=== PATIENT | male | born 1990 ===

== ENCOUNTER 2016-12-07 17:32 | Emergency (ER) | payer MEDICAID ==
[2016-12-07 17:33] VITALS: BMI 27.7
[2016-12-07 18:27] VITALS: TEMP 97.8; O2SAT 100
--- NOTE | 2016-12-07 18:34 | ED PDOC ---
Arrival/HPI - General Chief Complaint: Rib Injury Time Seen by Provider: 12/07/16 18:31 Historian: Patient - History of Present Illness Narrative History of Present Illness (Text): 12/07/16 18:32 26 y/o male, no pmh, nkda, c/o lt. lateral rib pain x 2 days with no fall or trauma. 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 Aching pain, aggravated by movement, no recent URI symptoms, no chest pain or shortness of breath, no hematuria, no urinary symptoms, no flank pain, no nausea or vomiting, no dizziness, no palpitation, no other medical or psychological complaints. Past Medical History - Provider Review Nursing Documentation Reviewed: Yes - Infectious Disease Hx of Infectious Diseases: None - Past Medical History Past Medical History: No Previous - Psychiatric Hx Depression: No Hx Emotional Abuse: No Hx Physical Abuse: No Hx Substance Use: Yes - Past Surgical History Past Surgical History: No Previous - Anesthesia Hx Anesthesia: No Hx Anesthesia Reactions: No Hx Malignant Hyperthermia: No - Suicidal Assessment Feels Threatened In Home Enviroment: No Family/Social History - Physician Review Nursing Documentation Reviewed: Yes Family/Social History: Unknown Family HX Smoking Status: Never Smoked Hx Alcohol Use: Yes Frequency of alcohol use: Socially Hx Substance Use: Yes Substance used: MJ Allergies/Home Meds Allergies/Adverse Reactions: Allergies No Known Allergies Allergy (Verified 02/07/14 07:32) Review of Systems - Review of Systems Constitutional: absent: Fatigue, Fevers Eyes: absent: Vision Changes ENT: absent: Hearing Changes Respiratory: absent: Cough Cardiovascular: absent: Chest Pain, Palpitations Gastrointestinal: absent: Abdominal Pain, Diarrhea, Nausea, Vomiting Musculoskeletal: Arthralgias, Myalgias. absent: Back Pain, Neck Pain, Joint Swelling Skin: absent: Rash, Pruritis, Skin Lesions, Laceration, Abscess, Ulcer, Cellulitis Neurological: absent: Headache, Dizziness, Focal Weakness, Gait Changes, Speech Changes, Facial Droop, Disequilibrium, Seizure Physical Exam Vital Signs Reviewed: Yes Vital Signs Temp Pulse Resp BP Pulse Ox 12/07/16 20:11 62 16 122/70 100 12/07/16 18:19 97.8 F 60 17 120/67 100 Temperature: Afebrile Blood Pressure: Normal Pulse: Regular Respiratory Rate: Normal Appearance: Positive for: Well-Appearing, Non-Toxic, Comfortable Pain Distress: Moderate Mental Status: Positive for: Alert and Oriented X 3 - Systems Exam Head: Present: Atraumatic, Normocephalic Pupils: Present: PERRL Extroacular Muscles: Present: EOMI Conjunctiva: Present: Normal Mouth: Present: Moist Mucous Membranes Neck: Present: Normal Range of Motion Respiratory/Chest: Present: Clear to Auscultation, Good Air Exchange, Tender to Palpation (+ttp on the lt. lateral anterior lower rib cage intercostal muscle region with the pain 100% reproducible, no cva tenderness, no rash. ). No: Respiratory Distress, Accessory Muscle Use, Wheezes, Decreased Breath Sounds, Rales, Retracting, Rhonchi, Tachypneic, Other Cardiovascular: Present: Regular Rate and Rhythm, Normal S1, S2. No: Murmurs Abdomen: Present: Normal Bowel Sounds. No: Tenderness, Distention, Peritoneal Signs, Guarding, McBurney's Point Tender Back: Present: Normal Inspection. No: CVA Tenderness, Midline Tenderness, Paraspinal Tenderness, Pain with Leg Raise Upper Extremity: Present: Normal Inspection. No: Cyanosis, Edema Lower Extremity: Present: Normal Inspection. No: Edema Neurological: Present: GCS=15, Speech Normal, Motor Func Grossly Intact, Gait Normal, Memory Normal Skin: Present: Warm, Dry, Normal Color. No: Rashes Psychiatric: Present: Alert, Oriented x 3, Normal Insight, Normal Concentration Medical Decision Making ED Course and Treatment: 12/07/16 18:34 -chest/rib xray -toradol IM -ekg -observe and reassess 12/07/16 19:39 -EKG wasn't performed properly so repeat ekg was performed. -the most updated ekg reading: NSR @ 64 BPM, no ST elevation or depression, no T wave inversion, compared with earlier ekg. -Chest x-ray and lt. rib xray show no fracture or dislocation, no pneumothorax. -Pt. feels much better, wants to be discharged home. -Discharge home with ibuprofen, ice compression, avoid heavy lifting, follow up with your own pmd within 2 days, return to the ER for any new or worsening signs or symptoms. - RAD Interpretation Radiology Orders: 12/07/16 18:31 CHEST TWO VIEWS (PA/LAT) [RAD] Stat RIBS LEFT [RAD] Stat chest: no active disease lt. rib: no rib fracture Utility Locator: Radiologist - EKG Interpretation EKG Interpretation (Text): 12/07/16 19:39 NSR @ 64 BPM, no ST elevation or depression, no T wave inversion, compared with earlier ekg. 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 Disposition/Present on Arrival - Present on Arrival Any Indicators Present on Arrival: No History of DVT/PE: No History of Uncontrolled Diabetes: No Urinary Catheter: No History of Decub. Ulcer: No History Surgical Site Infection Following: None - Disposition Have Diagnosis and Disposition been Completed?: Yes Diagnosis: Acute costochondritis Disposition: HOME/ ROUTINE Disposition Time: 19:41 Patient Plan: Discharge Condition: GOOD Additional Instructions: Discharge home with ibuprofen, ice compression, avoid heavy lifting, follow up with your own pmd within 2 days, return to the ER for any new or worsening signs or symptoms. Prescriptions: Ibuprofen [Motrin Tab] 800 mg PO TID PRN #21 tab PRN Reason: Other Referrals: Dara King MD [Primary Care Provider] - Follow up with primary Favio Lyon MD [Staff Provider] - Follow up with primary Forms: WORK NOTE
[2016-12-07 20:13] VITALS: BP 122/70; PULSE 62; RESP 16
--- NOTE | 2016-12-08 13:24 | RAD ---
PROCEDURE: Radiographs of the Chest and Left Ribs. HISTORY: lt. rib pain COMPARISON: None available. TECHNIQUE: Frontal radiograph of the chest and multiple oblique radiographs of the left ribs were obtained. FINDINGS: LEFT RIBS: No fracture or focal lesion visualized. LUNGS: Clear. PLEURA: No pneumothorax or pleural fluid. CARDIOVASCULAR: Normal sized heart. No pulmonary vascular congestion. OTHER FINDINGS: None. IMPRESSION: Unremarkable radiographs of the chest and left ribs. No left rib fracture.
--- NOTE | 2016-12-08 13:26 | RAD ---
HISTORY: lt. lateral rib pain COMPARISON: No prior. TECHNIQUE: Chest PA and lateral FINDINGS: LUNGS: No active pulmonary disease. PLEURA: No significant pleural effusion identified. No pneumothorax apparent. CARDIOVASCULAR: Normal. OSSEOUS STRUCTURES: No significant abnormalities. VISUALIZED UPPER ABDOMEN: Normal. OTHER FINDINGS: None. IMPRESSION: No active disease.
--- NOTE | 2016-12-10 12:02 | CARD ---
APPROVED REPORT EKG Measurement Heart [id number] <Conclusion> Normal sinus rhythm Normal ECG
--- NOTE | 2016-12-10 12:02 | CARD ---
APPROVED REPORT EKG Measurement Heart [id number] <Conclusion> Normal sinus rhythm Normal ECG
== END 2016-12-07 20:11 | disposition home or self-care (01) ==
LOC: ED 17:32
DX: M94.0 Chondrocostal junction syndrome [Tietze] (principal)